=== PATIENT | female | born 1945 | race Caucasian/White ===

== ENCOUNTER 2017-02-20 11:46 | Inpatient (IN) | payer MEDICARE, OTHER ==
[2017-02-20] VITALS (7 sets, daily range): BP systolic 134–161; BP diastolic 53–79; PULSE 6–67; RESP 16–18; O2SAT 99–100
[~2017-02-20] VITALS: Ht 154.9 cm; Wt 66.0 kg
[~2017-02-20 11:46] MED LIST: ASCO-294 PO; ATEN25TA PO; BACL10TA PO; CYAN100T PO; CYCL1DRO OP; DALF10TA PO; ERGO500050 PO; ESOM40CA41 PO; FESO4TAB PO; GABA800T2 PO; INUL2TAB8 PO; LEVO75TA4 PO; MULT-1018 PO; NYST15CR TP; PARO20TA57 PO; PILO5TAB PO; PSYL660P17 PO; STEROID; TLT2T PO; TOPI-59 PO; TRAZ-115 PO; [UNRECOGNIZED DRUG - OTHER] PO
[2017-02-20] MEDS ORDERED: 0.9% Sodium Chloride 1,000 ML IV ONE (12:20)
[2017-02-20] MEDS ORDERED: Ondansetron 2 mg/mL 2 mL Inj IVPUSH PRN ×3 (12:20→15:15)
--- NOTE | 2017-02-20 12:36 | ED.REPORT ---
HPI-General Illness Date of Service Feb 20, 2017 ED Provider: Willy Foster MD Pema Hui is a 71 year old woman with a PMH of MS, Fibromyalgia, L breast cancer 11 years with mastectomy and lymph node dissection given "all clear" by Dr. Bonilla within the last month, and Hiatal hernia s/p Rosibel fundoplication with subsequent revision with partial gastrectomy in January who presents with a 4 week history of nausea and vomiting essentially unable to tolerate most PO intake including her meds and 20 pounds of weight loss in that interim. She has only been able to tolerate small portions of thin liquids like chicken soup, she continues to take her opiate analgesia and nighttime Trazadone, but otherwise has been off her meds for 4 weeks. Nursing Notes Stated Complaint: INTRACTIBLE VOMITING Chief Complaint: Female Abdominal Pain Nursing Notes Reviewed: Yes Allergies: Coded Allergies: Penicillins (Verified Allergy, Severe, rash, 02/20/17) adhesive tape (Verified Allergy, Severe, blisters will tape (paper ok), ) aspirin (Verified Allergy, Severe, GI INTOLERANCE, 02/20/17) ibuprofen (Verified Allergy, Severe, GI INTOLERANCE, 02/20/17) metoclopramide HCl (Verified Allergy, Severe, severe anxiety, 02/20/17) promethazine HCl (Verified Allergy, Severe, hospitalized for tightness in chest, 02/20/17) warfarin (Verified Allergy, Severe, Hives, 02/20/17) Scheduled ([empyra]) 10 MG PO BID Ascorbate Calcium (Vitamin C) 500 Mg Tablet 500 MG PO DAILY Atenolol (Atenolol) 25 Mg Tablet 25 MG PO DAILY Baclofen (Baclofen) 10 Mg Tablet 10 MG PO TID Cyanocobalamin (Vitamin B-12) (Vitamin B-12) 100 Mcg Tablet 100 MCG PO DAILY Cyclosporine (Restasis) 1 Each Droperette 1 EACH OP BID Dalfampridine (Ampyra) 10 Mg Tablet 10 MG PO BID Ergocalciferol (Vitamin D2) (Drisdol) 50,000 Unit Capsule 50,000 UNIT PO WEEKLY Esomeprazole Magnesium (Nexium) 40 Mg Capsule.dr 40 MG PO BID Fesoterodine ER (Toviaz) 4 Mg Tablet 4 MG PO DAILY Gabapentin (Gabapentin) 800 Mg Tablet 400 MG PO TID Inulin (Fiber Gummies) 2 Gram Tab.chew 2 GM PO DAILY Levothyroxine (Levothyroxine) 75 Mcg Tablet 75 MCG PO DAILY Multivitamin (Multi Vitamin Daily) 1 Each Tablet 1 EACH PO DAILY Nystatin/Triamcin (Nystatin-Triamcinolone Cream) 15 Gm Cream..g. 15 GM TP TID Paroxetine (Paxil) 20 Mg Tablet 10 MG PO DAILY Pilocarpine (Salagen) 5 Mg Tablet 5 MG PO BID Psyllium Husk (Metamucil) 3.4 Gram/5.4 Gram Powder 17 GM PO DAILY Tolterodine Tartrate (Detrol) 2 Mg Tablet 4 MG PO DAILY Topiramate (Topiramate) 25 Mg Tablet 25 MG PO BID Trazodone (Trazodone) 50 Mg Tablet 50 MG PO HS Miscellaneous Medications ([steroid inj]) General Time Seen by MD: 13:30 Chief Complaint Vomiting Hx Obtained From: Patient Sudden in Onset?: No Onset Occurred: More than a week ago... (4 weeks) Symptom Duration: Waxes and wanes Location: : Abdomen Quality: Aching Severity: Current: Mild Severity: Maximum: Moderate Recent Healthcare: Recent doctor visit Similar Sx Previous: No Past Medical History Past Medical History cataracts hypertension Multiple Sclerosis GERD Hiatal Hernia s/p repair depression Past Surgical History Shoulder repair hiatal hernia repair spinal surgery hysterectomy bilateral cataract surgery Smoking History Never Smoker Social History Alcohol Use: Denies alcohol use Drug Use: Denies drug use Other Social History: Ambulatory Status Independent Review of Systems Full Review of Systems Constitutional: Reports: Recent wt loss (20 lbs unintentional) GI: Reports: Anorexia, Nausea, Vomiting Complete sys rev & neg: except as marked. Physical Exam Gen: A/O x3 chronically ill appearing woman in mild acute distress secondary to nausea Neck: Supple, non tender, Full ROM HEENT: Mucous membranes dry, PERRL, EOMI, no scleral icterus CV: RRR, no murmurs rubs or gallops Resp: Lungs CTA BL, no wheezing rales or rhonchi Abdomen: soft, diffusely mildly tender to palpation, BS diminished 4Q, no masses or organomegaly Extr: No cyanosis clubbing or edema Neuro: CN 2-12 grossly intact, no focal neurologic deficit. Vital Signs Vital Signs Date Time Temp Pulse Resp B/P Pulse Ox O2 Delivery O2 Flow Rate FiO2 328/17 14:33 63 16 139/53 100 Room Air 02/20/17 12:02 36.7 67 16 134/79 100 Room Air Initial VS: Reviewed, Vital signs normal Interpretation & Diagnostics Lab Results Interpretation Result Diagram: 02/20/17 1316 02/20/17 1316 Test 02/20/17 13:16 White Blood Count 5.2th/mm3 (3.8-10.1) Red Blood Count 4.93mil/mm3 (3.90-5.20) Hemoglobin 14.7g/dL (12.0-15.6) Hematocrit 41.7% (35.0-46.0) Mean Corpuscular Volume 84.6fL (81-100) Mean Corpuscular Hemoglobin 29.8pg (27.0-35.0) Mean Corpuscular Hemoglobin Concent 35.3% (32.0-37.0) Red Cell Distribution Width 14.3% (12.3-15.4) Platelet Count 265bil/L (150-400) Neutrophils (%) (Auto) 49.2% (40-74) Lymphocytes (%) (Auto) 37.6% (14-46) Monocytes (%) (Auto) 7.0% (4-12) Eosinophils (%) (Auto) 5.8% (0-5) Basophils (%) (Auto) 0.4% (0-3) Hold Blue Top Tube Received (Received) Sodium Level 144mEq/L (134-144) Potassium Level 2.6mEq/L (3.5-5.2) Chloride Level 100mEq/L (97-108) Carbon Dioxide Level 27mmol/L (18-29) Blood Urea Nitrogen 8mg/dL (8-27) Creatinine 0.68mg/dL (0.57-1.00) Estimat Glomerular Filtration Rate 122mL/min (>59) Glucose Level 93mg/dL (60-99) Calcium Level 9.8mg/dL (8.5-10.1) Total Bilirubin 0.4mg/dL (0.0-1.2) Aspartate Amino Transf (AST/SGOT) 23U/L (0-50) Alanine Aminotransferase (ALT/SGPT) 14U/L (0-32) Alkaline Phosphatase 66U/L (25-165) Total Protein 6.7g/dL (6.4-8.4) Albumin 4.0g/dL (3.4-5.0) Lipase 36U/L (13-60) Lab Results Interpretation: Hypokalemia at 2.6 Re-Eval/Medical Decision Med Decision/Clinical Course This is a patient with intractable nausea and vomiting for the past 4 weeks with associated 20 pounds of unintentional weight loss. History of L breast cancer s/p lumpectomy. Lab evaluation reveals a Potassium of 2.6, KCl given for replacement. Given the patient is unable to tolerate PO intake, has marked electrolyte abnormalities with palpitations, and her unintentional weight loss we believe that she would benefit from admission for electrolyte replacement, cardiac monitoring, and GI evaluation for her vomiting. Counseled Regarding: Diagnosis, Lab results, Need for admission Discharge & Departure Shift Change Sign-Out Patient Care Transferred: Yes Discussed Complaint(s): Yes Laboratory Evaluation: Lab evaluation discussed Response to Therapy: Improved Primary Impression: Hypokalemia, gastrointestinal losses Additional Impression: Intractable vomiting with nausea Vomiting type: unspecified Qualified Code: R11.2 - Nausea with vomiting, unspecified Disposition: ADMITTED TO HOSPITAL Discharge Condition All VS Reviewed: Yes Condition: Stable Referrals: Suzanne Ortega (PCP) EDSupervising Provider for APC: Willy Foster MD Attending Statement I saw and evaluated patient with resident Dr Smallwood. I evaluated patient independently and agree with plan as above. In brief, 71-year-old female history of breast cancer and hiatal hernia presenting with nausea and vomiting for 4 weeks and weakness and 20 pound weight loss. Potassium is 2.6. She will be admitted to hospitalist service. copies to: Suzanne Ortega David E DO Feb 20, 2017 12:35 Willy Foster MD Feb 20, 2017 15:18
[2017-02-20 13:34] LABS: BASOPHILS % (AUTO) 0.4 % (0-3); EOSINOPHILS % (AUTO) 5.8 % (0-5); Mean Corpuscular Hemoglobin 29.8 pg (27.0-35.0); Mean Corpuscular Volume 84.6 fL (81-100); NEUTROPHILS % (AUTO) 49.2 % (40-74); Platelet Count 265 bil/L (150-400)
[2017-02-20] MEDS ORDERED: Potassium Chloride Inj 30 MEQ in Dextrose 5% 500 ML IV ONE (14:20)
[2017-02-20] MEDS ORDERED: Polyethylene Glycol (PEG) 17 Gm Powder PO PRN (15:15)
[2017-02-20] MEDS ORDERED: Alum-Mag Hydrox-Simeth 30 mL Suspension PO PRN ×2 (15:15)
--- NOTE | 2017-02-20 16:42 | PCM.HPMED ---
Subjective Date of Service Feb 20, 2017 Primary Provider: Admitting Physician: Bud Kearns MD Primary Care Physician: Suzanne Ortega Attending Physician: Bud Kearns MD Admit Status: From the Emergency Department, 23-Hour Observation, Remote Telemetry Chief Complaint: Nausea, vomiting and hypokalemia History of Present Illness: This patient saw her PCP for 4 weeks of nausea and vomiting this AM. She also has chronic diarrhea. She has a H/O surgery for hiatal hernia with a second surgery for a related problem and a partial gastrectomy. She has had epigastric abdomen pain and some dyspepsia. No hematemesis. No abdomen distension. No fevers or chills. She also has chronic diarrhea and this is unchanged. She has no blood or mucous per rectum. She has lost 20 pounds over the month and is weaker. Her K is found to be low at 2.8. She is concerned that her nausea relates to her topiramate. She denies diarrhea or blood per rectum. She denies fevers, or dyspepsia. She has ongoing fatigue and anorexia. No skin rash. No jaundice. Review of Systems: All else reviewed and negative except as noted in H and P. Allergies Coded Allergies: Penicillins (Verified Allergy, Severe, rash, 02/20/17) adhesive tape (Verified Allergy, Severe, blisters will tape (paper ok), ) aspirin (Verified Allergy, Severe, GI INTOLERANCE, 02/20/17) ibuprofen (Verified Allergy, Severe, GI INTOLERANCE, 02/20/17) metoclopramide HCl (Verified Allergy, Severe, severe anxiety, 02/20/17) promethazine HCl (Verified Allergy, Severe, hospitalized for tightness in chest, 02/20/17) warfarin (Verified Allergy, Severe, Hives, 02/20/17) Home Medications Scheduled ([empyra]) 10 MG PO BID Ascorbate Calcium (Vitamin C) 500 Mg Tablet 500 MG PO DAILY Atenolol (Atenolol) 25 Mg Tablet 25 MG PO DAILY Baclofen (Baclofen) 10 Mg Tablet 10 MG PO TID Cyanocobalamin (Vitamin B-12) (Vitamin B-12) 100 Mcg Tablet 100 MCG PO DAILY Cyclosporine (Restasis) 1 Each Droperette 1 EACH OP BID Dalfampridine (Ampyra) 10 Mg Tablet 10 MG PO BID Ergocalciferol (Vitamin D2) (Drisdol) 50,000 Unit Capsule 50,000 UNIT PO WEEKLY Esomeprazole Magnesium (Nexium) 40 Mg Capsule.dr 40 MG PO BID Fesoterodine ER (Toviaz) 4 Mg Tablet 4 MG PO DAILY Gabapentin (Gabapentin) 800 Mg Tablet 400 MG PO TID Inulin (Fiber Gummies) 2 Gram Tab.chew 2 GM PO DAILY Levothyroxine (Levothyroxine) 75 Mcg Tablet 75 MCG PO DAILY Multivitamin (Multi Vitamin Daily) 1 Each Tablet 1 EACH PO DAILY Nystatin/Triamcin (Nystatin-Triamcinolone Cream) 15 Gm Cream..g. 15 GM TP TID Paroxetine (Paxil) 20 Mg Tablet 10 MG PO DAILY Pilocarpine (Salagen) 5 Mg Tablet 5 MG PO BID Psyllium Husk (Metamucil) 3.4 Gram/5.4 Gram Powder 17 GM PO DAILY Tolterodine Tartrate (Detrol) 2 Mg Tablet 4 MG PO DAILY Topiramate (Topiramate) 25 Mg Tablet 25 MG PO BID Trazodone (Trazodone) 50 Mg Tablet 50 MG PO HS PMH 1. MS 2. Fibromyalgia 3. Chronic pain syndrome 4. Remote left breast CA, lumpectomy + Rad + Ctx. 5. Hiatal hernia Surgical History 1. Raymon fund 2. Partial gastrectomy 3. LEXX 4. BSO Family History Sister with MS Social History Hx Alcohol Use: Yes Hx Substance Use: No Hx Tobacco Use: No Smoking Status: Never Smoker Living Arrangement: with Family Exam Vital Signs Vital Sign - Last Date Time Temp Pulse Resp B/P Pulse Ox O2 Delivery O2 Flow Rate FiO2 02/20/17 15:48 36.7 63 16 139/53 100 Room Air Exam Alert and oriented by 3. No distress, fluent speech. Normal skull Normal nose and ears. Anicteric sclera, symmetric pupils. Normal mouth, no droop. Neck supple, normal thyroid, no adenopathy. Lungs clear and normal effort Heart regular without murmur. Abdomen soft, with epigastric tenderness, no mass or rebound. No rash, ecchymosis Normal joints Normal motor strength. Lab and Diagnostics Result Diagram: 02/20/17 1316 02/20/17 1316 Assessment & Plan 1. Nausea and vomiting, POA. Treat symtoms and CT abdomen/pelvis to R/O SBO. 2. Volume depletion, POA. IVF 3. Hypokalemia, POA. Replete. 4. Chronic diarrhea, POA. Follow 5. MS, POA. No acute treatment plan. 6. Possible adverse medication effect (topiramate), POA. Ful code. Obs status with one night stay anticipated. Pain Evaluation: Adequate Pain Control Resuscitation Status: CPR: Attempt Resuscitation Time spent 40 min Bud Kearns MD Feb 20, 2017 16:42
[2017-02-20] MEDS: 0.9% Sodium Chloride 1,000 ML IV SCH (17:38)
[2017-02-20] MEDS ORDERED: GABA-504 PO (18:29)
[2017-02-20] MEDS ORDERED: ERGO2000 PO (18:29)
[2017-02-20] MEDS ORDERED: FLUT16SP NOSTRIL (18:35)
[2017-02-20] MEDS ORDERED: METO25TA3 PO (18:35)
[2017-02-20] MEDS ORDERED: OXYC1TAB24 PO (18:35)
[2017-02-20] MEDS ORDERED: DICL100G8 TOPICAL (18:35)
--- NOTE | 2017-02-20 19:22 | NUR ---
Admission Admit to room 3003 from ER via [facility]. KRider infusing, IVF initiated. Maintaining RA. Oriented to room and call light. Med Rec and limited admission assessments completed d/t time of arrival to unit. Hot packs admin for neck pain and zofran admin prior to oral contrast for ABD CT. Using SBA to BSC and comfortable with plan of care at this time.
--- NOTE | 2017-02-20 20:08 | DRSVH ---
PROCEDURE: CT ABDOMEN AND PELVIS WITH CONTRAST ([id number]) INDICATIONS: Abdominal pain TECHNIQUE: After the administration of oral and intravenous contrast, 5 mm thick sections acquired from the diap hragms to the symphysis. 5 mm thick coronal and sagittal reformats were performed. For radiation do se reduction, the following was used: automated exposure control, adjustment of mA and/or kV accordi ng to patient size. COMPARISON: None. FINDINGS: Image quality: Excellent. ABDOMEN: Lung bases: There is mild atelectasis in the lung bases. There is a spiral hernia with postsurgical changes at the gastroesophageal junction. Heart size is normal. Solid organs: There is hypoattenuation of the liver consistent with fatty infiltration. The spleen i s normal in size. Gallbladder appears within normal limits without calcified gallstones. Biliary sy stem is non-dilated. Pancreas enhances normally. No adrenal nodules. Kidneys demonstrate no hydron ephrosis. Peritoneum and bowel: Stomach and small bowel loops are normal in caliber and wall thickness. There is colonic diverticulosis without acute diverticulitis. There is mild segmental wall thickening in the sigmoid colon suggesting a mild nonspecific colitis. No free fluid or air. Nodes and vessels: No retroperitoneal or mesenteric adenopathy. Aorta and inferior vena cava are no rmal in caliber. Miscellaneous: No ventral hernias. PELVIS: Genitourinary: Bladder wall thickness is normal. Miscellaneous: No inguinal hernias or adenopathy. Bones: No suspicious bony lesions. No vertebral body compression fractures. IMPRESSION: 1. Post surgical changes at the gastroesophageal junction suggestive of prior fundoplication with a small hiatal hernia demonstrated. 2. Mild segmental wall thickening of the sigmoid colon compatible with a mild nonspecific infectious or inflammatory colitis. Dictated by: Rikki Anglin M.D. on 02/20/2017 at 20:03 Approved by: Rikki Anglin M.D. on 02/20/2017 at 20:06
[2017-02-20] MEDS ORDERED: Potassium Chloride Inj 20 MEQ in Dextrose 5% 250 ML IV ONE (22:05)
[2017-02-20 22:55] LABS: APPEARANCE,URINE CLEAR (CLEAR,HAZY); COLOR,URINE STRAW (YELLOW); OCCULT BLOOD,URINE NEGATIVE (NEGATIVE); PH,URINE 5.5 (5.0-8.0); UROBILINOGEN,URINE NORMAL (NORMAL)
[2017-02-21] VITALS (7 sets, daily range): BP systolic 115–152; BP diastolic 61–76; PULSE 64–76; RESP 16–18; O2SAT 94–99
--- NOTE | 2017-02-21 00:09 | NUR ---
Critical measure at 8232: Low k 2.7. Dr. Rose paged at 0009, k sapna has been ordered and will be hang.
[2017-02-21] MEDS: oxyCODONE-Acetamin 5-325 mg Tablet PO PRN (04:11)
[2017-02-21] MEDS: 0.9% Sodium Chloride 1,000 ML IV SCH ×3 (05:23→21:14)
[2017-02-21 06:59] LABS: BASOPHILS % (AUTO) 0.6 % (0-3); EOSINOPHILS % (AUTO) 15.3 % (0-5); MONOCYTES % (AUTO) 7.7 % (4-12); Mean Corpuscular Hemoglobin 29.9 pg (27.0-35.0); Mean Corpuscular Volume 86.4 fL (81-100); NEUTROPHILS % (AUTO) 38.5 % (40-74); Platelet Count 205 bil/L (150-400)
--- NOTE | 2017-02-21 07:17 | NUR ---
Pain Pt c/o neck pain 5-06/04, Morphine IV given at pm, Percocet given this am, pain improved and pt sleeping comfortably. VSS, afebrile.
[2017-02-21] MEDS: PARoxetine 20 mg Tablet PO SCH (08:30)
[2017-02-21] MEDS ORDERED: Potassium Phos (mEq) Inj 20 MEQ in Dextrose 5% 250 ML IV ONE (09:00)
[2017-02-21] MEDS ORDERED: Potassium Chloride 20 mEq SR Tablet PO ONE (09:00)
[2017-02-21] MEDS: MeTOProlol XL 25 mg ER24 Tablet PO SCH (09:56)
[2017-02-21] MEDS ORDERED: KCl 40 mEq/D5W 500 mL 40 MEQ in IV Premix 1 EACH IV ONE (10:15)
[2017-02-21] MEDS ORDERED: Potassium Chloride Inj 20 MEQ in Dextrose 5% 250 ML IV ONE (11:45)
--- NOTE | 2017-02-21 13:54 | NUR ---
Social Work: Initial Assessment / Readiness for d/c Data: Pt is a 71 y/o female admitted for hypokalemia due to intractable vomiting. Pt's PCP is Dr Ortega, pt's insurance is Medicare with [employer] supp. EMR reviewed. Readmit score is 3. NEW GRAD RN met with pt at bedside, role explained. Pt states that she lives in [place] with her in a single story home where she uses a cane regularly and a walker when out. Pt states she drives, has hx of HH and SNF at [facility]. She states she has no LTC or VA benefits and is not a caregiver. Pt reports no AD/DPOA, declined info. NEW GRAD RN will continue to follow for possible HH need. Assessment: Pt who is independent at baseline. Plan: Pt will d/c home via POV when medically stable, NEW GRAD RN will continue to follow for possible HH need. JULIUS Garcia Addendum: 02/21/17 at 1359 by LEONARD HOOVER Amended: Links added.
--- NOTE | 2017-02-21 17:19 | PCM.PNMED ---
Subjective Date of Service Feb 21, 2017 Subjective Uneventful overnight. K up to 3.1 this morning. This report she is doing mildly better this morning. She is less nauseous, but reports she has not trialed any PO intake. She denies any fever, chest pain, or shortness of breath. She does endorse moderate abdominal pain, worse in the epigastric and left lower quadrant. Exam Vital Signs Vital Sign - Last Date Time Temp Pulse Resp B/P Pulse Ox O2 Delivery O2 Flow Rate FiO2 02/21/17 05:29 36.8 64 18 115/61 94 Room Air Intake and Output 02/20/17 02/20/17 02/21/17 Cumulative From/Thru 15:00 23:00 07:00 02/20/17 12:02 - 02/21/17 05:24 Intake Total 1000 ml 125 ml 1798 ml 2923 ml Output Total 0 ml 0 ml Balance 1000 ml 125 ml 1798 ml 2923 ml Intake Oral 125 ml 125 ml IV Total 1000 ml 1798 ml 2798 ml Output Urine Total 0 ml 0 ml # Bowel Movements 0 0 Exam General: Well-developed female who appears in no acute distress HEENT: Atraumatic, PERRLA, EOMI, oropharynx moist and pink Neck: Soft, nontender CV: RRR with soft systolic murmur noted, peripheral pulses intact and equal Respiratory: CTAB, normal respiratory effort Abdomen: Soft, nondistended, tender to palpation in the epigastrium and left lower quadrant, no guarding or rebound, hyperactive bowel sounds noted, no rashes MSK: Muscle strength grossly intact and equal Neuro: Alert and oriented 3, no focal weakness Skin: Warm, dry, intact Psychiatric: Appropriate mood and affect, linear thought process IVs and Medications Medications Reviewed: Medications were reviewed in detail Lab and Diagnostics Result Diagram: 02/21/17 0600 02/21/17 0600 X-Rays, CTs and MRIs CT abdpelvis IMPRESSION: 1. Post surgical changes at the gastroesophageal junction suggestive of prior fundoplication with a small hiatal hernia demonstrated. 2. Mild segmental wall thickening of the sigmoid colon compatible with a mild nonspecific infectious or inflammatory colitis. Assessment & Plan 71 year old woman with a PMH of MS, Fibromyalgia, L breast cancer 11 years s/p mastectomy and lymph node dissection, and Hiatal hernia s/p Rosibel fundoplication with subsequent revision with partial gastrectomy in January who presents with a 4 week history of nausea, vomiting, anorexia, and loose bowels. 1. Intractable Nausea/Vomiting/Diarrhea, POA. Likely associated with patient's new sigmoid thickening is noted on CT of her abdomen and pelvis. Her hiatal hernia and extensive abdominal surgery history probably is a contributing factor We will continue to advance diet as tolerated Gastroenterology consultation placed Zofran prn nausea #Likely sigmoid colitis, POA As demonstrated on CT for abdomen and pelvis. Patient is afebrile without an elevated white count and her symptoms have been fairly chronic so this is unlikely an infectious process Further management as above #. Volume depletion, POA We will continue IV fluids at 100 mls/hr while having poor PO intake #. Hypokalemia, POA. - Resolved Patient was hypokalemic with potassium of 2.6 on admission. Perhaps due to recent prolonged episode of diarrhea This was replenished with IV potassium and improve to level of 3.6 We will continue to monitor and replenish as needed #. History of multiple sclerosis, POA. Stable #. Polypharmacy, POA. Patient is on an extensive list of medications that could be contributing to her symptoms We will recommend outpatient follow-up for appropriate titration Disposition: Likely discharge in 1-2 days if medically stable and cleared by GI Pain Evaluation: Adequate Pain Control VTE Mechanical Devices: Intermittant Pneumatic CD Resuscitation Status: CPR: Attempt Resuscitation Attending Statement The patient was seen and examined independently on 02/21/2017 and case discussed with Dr. Rodgers , I agree with the history, exam and plan as outlined in the note above. Janes Rodgers DO Feb 21, 2017 08:14 Saul Monroy MD Feb 22, 2017 07:44
--- NOTE | 2017-02-21 19:39 | NUR ---
BM: Patient had diarrhea x2 today. The second episode stool was sent to the lab per for PCR test.
--- NOTE | 2017-02-21 22:57 | CONS ---
[address] [address] CONSULTATION REPORT PATIENT: HAROLDO RICHARDSON : 1945 MR#: [id number] ADMIT: 02/20/2017 JOB ID: [id number] DATE OF SERVICE: 02/21/2017 REQUESTING PROVIDER: Lindsey Rodgers MD REASON FOR CONSULTATION: Nausea, vomiting, diarrhea and abnormal CT imaging. HISTORY OF PRESENT ILLNESS: This is a 71-year-old female known to me from the outpatient setting. She has a history of constipation, opiate dependency, refractory reflux requiring a redo of her Rosibel fundoplication. She has had recurrence of hiatal hernia in spite of the surgical intervention. The patient recently returned from [place] and within a couple of weeks of that trip started to experience symptoms of nausea, vomiting, frequent loose bowel movements. No report of any bleeding plus a 20 pound weight loss over this time frame. ALLERGIES: 1. PENICILLIN. 2. ADHESIVE TAPE. 3. ASPIRIN. 4. IBUPROFEN. 5. METOCLOPRAMIDE. 6. PROMETHAZINE. 7. WARFARIN. MEDICATIONS: The patient denies any new drugs apart from her topiramate. She was also takin. Baclofen. 2. Pilocarpine. 3. Atenolol. 4. Metoprolol. 5. Diclofenac gel. 6. Gabapentin. 7. Paxil (topiramate was apparently stopped recently). 8. Trazodone. 9. Percocet. 10. Restasis eyedrops. 11. Fluticasone nasal spray. 12. Nexium. 13. Fish gummies. 14. Levothyroxine. 15. Nystatin. 16. Triamcinolone cream. 17. Detrol. 18. Vitamin C. 19. Vitamin B12. 20. Vitamin D 2. 21. Multivitamin. 22. Ampyra. 23. She additionally was written for Metamucil and Toviaz. PAST MEDICAL HISTORY: Fibromyalgia, chronic pain, chronic opiate consumption, multiple sclerosis, breast cancer, reflux, hiatal hernia, twisty colon with failed colonoscopy, hypothyroidism. PAST SURGICAL HISTORY: Redo of Rosibel fundoplication, total abdominal hysterectomy, bilateral salpingo-oophorectomy. FAMILY HISTORY: Multiple sclerosis has been diagnosed in her sister. SOCIAL HISTORY: No tobacco use. Patient does use alcohol. REVIEW OF SYSTEMS: No fevers or chills. Weight loss as above. She had some fairly diffuse numbness and tingling that she believes was related to the topiramate and stopped this with resolution of some of these symptoms. She is not having any significant reflux or dysphagia. There was a report of some mild upper abdominal discomfort at times. She was hypokalemic as a consequence of all of her nausea, vomiting and diarrhea. She denies any antibiotic exposure in recent memory. A CAT scan here in the hospital revealed some mild segmental wall thickening described in the sigmoid of uncertain etiology. The review is otherwise as per above. She is not experiencing any cardiopulmonary symptoms. No stroke-like symptoms. PHYSICAL EXAMINATION: The patient was lying in the semirecumbent position. Blood pressure this afternoon 140/66, pulse 68, breathing 18, temperature 36.9, 97% on room air. The patient was in no distress, conversational, alert, oriented, appropriate. Lungs clear bilaterally. Heart regular. No significant peripheral pitting edema. Abdomen was soft, and there was some mild upper abdominal discomfort and even some diffuse lower discomfort without guarding. Bowel sounds were active. No significant distention appreciated. LABORATORY: Potassium was 2.6 on admission and has been normal at 3.6. Sodium 140, potassium as above, chloride 104, bicarb 21, BUN 3, creatinine 0.63, glucose 117, calcium 8.4, magnesium 1.8. Liver tests normal. Albumin 3.1. Updated TSH was 2.90, procalcitonin level was normal. There was evidence of white cells in the urine but no growth so far. There were some epithelial cells suggesting perhaps a contaminated specimen. White count is normal, platelets 205, hemoglobin 12.3, white count 5.3. CT scan: I reviewed the images and do not see significant stool burden. There is some very mild subtle possible thickening versus imaging artifact from lack of distention in the sigmoid. ASSESSMENT AND PLAN: This is a 71-year-old female with four weeks of nausea, vomiting, diarrhea, weight loss of uncertain etiology. She has a history of chronic daily opiate use and constipation. Her diarrhea symptoms are a little unusual, and I would definitely consider obstipation high in the differential. The only problem with that is that I really do not see that very easily on the CT scan. Procalcitonin level is normal and there is no evidence of a left shift nor a leukocytosis, but we would still need to exclude an infectious GI agent. I have thus requested stool PCR for enteric pathogens. If this is positive, we can proceed accordingly. If negative, I would be inclined to pursue a couple of Fleets enemas tomorrow afternoon and attempt visualization of the sigmoid colon to correlate with what is being described on CT. Beyond that, if there is no answer with a flexible sigmoidoscopy, further workup with HIDA scan imaging should be considered.
[2017-02-22] VITALS (10 sets, daily range): BP systolic 125–183; BP diastolic 66–83; PULSE 56–78; RESP 14–20; O2SAT 92–99
--- NOTE | 2017-02-22 06:10 | NUR ---
BM/Dizziness Pt incontinent of liquid stool X1 this shift, bedding and brief changed. When pt transferring from bed to chair, pt stating feeling "dizzy." Pt unsteady on feet, pt back to bed from chair with 2 person assist. Instructed pt not to get up by herself, call light within reach, frequent rounding, bed alarm on for pt safety.
[2017-02-22] MEDS: 0.9% Sodium Chloride 1,000 ML IV SCH ×2 (06:45→17:42)
[2017-02-22 07:52] LABS: BASOPHILS % (AUTO) 1.2 % (0-3); EOSINOPHILS % (AUTO) 20.2 % (0-5); MONOCYTES % (AUTO) 7.5 % (4-12); Mean Corpuscular Hemoglobin 29.9 pg (27.0-35.0); Mean Corpuscular Volume 84.1 fL (81-100); NEUTROPHILS % (AUTO) 43.1 % (40-74)
[2017-02-22] MEDS: MeTOProlol XL 25 mg ER24 Tablet PO SCH (08:01)
[2017-02-22] MEDS: PARoxetine 20 mg Tablet PO SCH (08:01)
[2017-02-22] MEDS: oxyCODONE-Acetamin 5-325 mg Tablet PO PRN ×2 (08:15→21:03)
[2017-02-22] MEDS ORDERED: Sodium Biphos-Phos 133 mL Enema RECTAL ONE (09:15)
[2017-02-22] MEDS: Sodium Biphos-Phos 133 mL Enema RECTAL PRN ×3 (12:05→14:21)
--- NOTE | 2017-02-22 14:11 | NUR ---
NUTRITION ASSESSMENT: ASSESS: 71 YO female admitted for hypokalemia due to persistent nausea/vomiting x 4 weeks and chronic diarrhea. Pt reports 20 lb wt loss x last 4 weeks, but per EMR review, wt appears stable since March 2016. Pt was on a full liquid diet x 2 days with po intake of 25-50% of meals, but diet has been changed to clear liquids today. As pt with partial gastrectomy, nausea, vomiting and diarrhea could be due to dumping syndrome. RD will continue to monitor. PMHx: MS, Fibromyalgia, chronic pain syndrome, remote L breast cancer s/p lumpectomy, chemo and radiation, hiatal hernia s/p repair with 2nd surgery for partial gastrectomy. LABS: Reviewed. Glu 127, Alb 3.1, Cr .55. MEDS: Reviewed. GI: Diarrhea (chronic) x 1 (02/22). CURRENT WT: 66 kg. Wt 03/2016: 66 kg. UBW from 5863-8352: 79 kg. Significant wt loss prior to 2012, but current wt appears stable x 10 months. DIET: Clear liquids. No po intake reported today. EST. NEEDS: 7870-9296 kcals (25-30 kcals/kg BW), 80-100 g protein (1.2-1.5 g/kg BW) NUTRITION DIAGNOSIS: 1.) Inadequate oral intake related to decreased ability to consume sufficient energy as evidenced by current clear liquid diet status x 1 day. NUTRITION INTERVENTION: 1.) Will add ensure clear and Gelatein 20 to all trays to encourage increased po intake while pt on clear liquid diet. MONITOR / EVAL: Diet advancement / tolerance, po intake, labs, nutritional status. Follow per moderate nutritional risk guidelines.
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
[2017-02-22] MEDS ORDERED: Lactated Ringer's 1,000 ML IV ONE (16:30)
--- NOTE | 2017-02-22 16:54 | PCM.ANEP1 ---
Post Anesthesia Phase 1 PACU Phase 1 Assessment Vital Signs see anesthesia report Vital Signs Date Time Temp Pulse Resp B/P Pulse Ox O2 Delivery O2 Flow Rate FiO2 02/22/17 15:29 36.6 60 18 147/77 96 Room Air 02/22/17 10:59 36.3 76 18 151/73 95 Room Air Anesthetic Administered: MAC Level of Alertness: Sleepy, easy to arouse HERRERA's with Equal Strength: No Pain: No Nausea or Vomiting: No Oxygen Delivery: Room Air Lungs: Normal Air Movement Rayo Marshall MD Feb 22, 2017 16:54
--- NOTE | 2017-02-22 16:54 | PCM.ANEP2 ---
Post Anesthesia Evaluation ASA/CMS Post Anesthesia VS in Patient's Normal Range?: Yes Resp Stable; Airway Patent?: Yes CV Function & Hydration Stable: Yes Mental Status Recovered?: Yes Pain control Satisfactory?: Yes N/V Control Satisfactory?: Yes Rayo Marshall MD Feb 22, 2017 16:54
--- NOTE | 2017-02-22 16:55 | PCM.PNMED ---
Subjective Date of Service Feb 22, 2017 Subjective [place] Brown 71 year old woman with a PMH of MS, Fibromyalgia, L breast cancer 11 years s/p mastectomy and lymph node dissection, and Hiatal hernia s/p Rosibel fundoplication with subsequent revision with partial gastrectomy in January who presents with a 4 week history of nausea, vomiting, anorexia, and loose bowels. Hospital day #3 Overnight: No acute events. Today: The patient was sleeping in her room. She tolerate her Fleets enemas well. Her stools are clear. Exam Vital Signs Vital Sign - Last Date Time Temp Pulse Resp B/P Pulse Ox O2 Delivery O2 Flow Rate FiO2 02/22/17 10:59 36.3 76 18 151/73 95 Room Air Intake and Output 02/21/17 02/21/17 02/22/17 Cumulative From/Thru 15:00 23:00 07:00 02/20/17 12:02 - 02/22/17 06:43 Intake Total 836 ml 2663 ml 1478 ml 7900 ml Output Total 1100 ml 1450 ml 2150 ml 4700 ml Balance -264 ml 1213 ml -672 ml 3200 ml Intake Oral 836 ml 1600 ml 400 ml 2961 ml IV Total 1063 ml 1078 ml 4939 ml Output Urine Total 1100 ml 1200 ml 1300 ml 3600 ml Stool Total 250 ml 100 ml 350 ml Urine/Stool Mix 750 ml 750 ml # Bowel Movements 0 1 1 2 Exam General: Well-developed female who appears in no acute distress, resting comfortably. HEENT: Atraumatic, PERRLA, EOMI, oropharynx moist and pink Neck: Soft, nontender CV: RRR with soft systolic murmur noted, peripheral pulses intact and equal Respiratory: CTAB, normal respiratory effort Abdomen: Soft, nondistended, tender to palpation in the epigastrium and left lower quadrant, no guarding or rebound, hyperactive bowel sounds noted, no rashes MSK: Muscle strength grossly intact and equal Neuro: Alert and oriented 3, no focal weakness Skin: Warm, dry, intact Psychiatric: Appropriate mood and affect, linear thought process IVs and Medications Medications Reviewed: Medications were reviewed in detail Lab and Diagnostics Result Diagram: 02/22/17 0735 02/22/17 0940 X-Rays, CTs and MRIs CT ABDOMEN AND PELVIS WITH CONTRAST IMPRESSION: 1. Post surgical changes at the gastroesophageal junction suggestive of prior fundoplication with a small hiatal hernia demonstrated. 2. Mild segmental wall thickening of the sigmoid colon compatible with a mild nonspecific infectious or inflammatory colitis. Dictated by: Rikki Anglin M.D. on 02/20/2017 at 20:03 Assessment & Plan Pema Hui 71 year old woman with a PMH of MS, Fibromyalgia, L breast cancer 11 years s/p mastectomy and lymph node dissection, and Hiatal hernia s/p Rosibel fundoplication with subsequent revision with partial gastrectomy in January who presents with a 4 week history of nausea, vomiting, anorexia, and loose bowels. Hospital day #3 1. Intractable Nausea/Vomiting/Diarrhea, POA. -Likely associated with patient's new sigmoid thickening is noted on CT of her abdomen and pelvis. Her hiatal hernia and extensive abdominal surgery history probably is a contributing factor -We will continue to advance diet as tolerated -Gastroenterology consultation placed -Dr Cantu has high suspicion that obstipation is the main cause of her symptoms -Patient to undergo flex sigmoidoscopy today, if normal, then HIDA scan tomorrow -Zofran PRN nausea 2. Possible sigmoid colitis, POA -As demonstrated on CT for abdomen and pelvis. -Patient is afebrile without an elevated white count and her symptoms have been fairly chronic so this is unlikely an infectious process -Further management as above 3. Volume depletion, POA -We will continue IV fluids at 100 mls/hr while having poor PO intake 4. Hypokalemia, POA. - Resolved -Patient was hypokalemic with potassium of 2.6 on admission. Perhaps due to recent prolonged episode of diarrhea -This was replenished with IV potassium and improve to level of 3.6 -We will continue to monitor and replenish as needed 5. History of multiple sclerosis, POA. -Stable 6. Polypharmacy, POA. -Patient is on an extensive list of medications that could be contributing to her symptoms -We will recommend outpatient follow-up for appropriate titration Disposition: Likely discharge in 1-2 days if medically stable and cleared by GI VTE Mechanical Devices: Intermittant Pneumatic CD Resuscitation Status: CPR: Attempt Resuscitation Attending Statement The patient was seen and examined independently on 02/22/2017 and case discussed with Dr. Miramontes , I agree with the history, exam and plan as outlined in the note above. Nia Miramontes 30, 2017 11:15 Saul Monroy MD Feb 22, 2017 19:45
--- NOTE | 2017-02-22 17:21 | ENDO ---
[address] [address] ENDOSCOPY PROCEDURE PATIENT: HAROLDO RICHARDSON : 1945 MR#: [id number] ADMIT: 02/20/2017 JOB ID: [id number] DATE: 02/20/2017 PRIMARY PROVIDER: Suzanne Ortega PA-C PROCEDURE: Flexible sigmoidoscopy with extension to colonoscopy with hot snare polypectomy and random biopsies. INDICATIONS: A 71-year-old female with weight loss, diarrhea, nausea, vomiting, and abnormal CT concerning for thickening in the sigmoid. EQUIPMENT: PCF-H180AL. SEDATION: Monitored anesthesia as provided by Dr. Rayo Marshall. COMPLICATIONS: None identified. BOWEL PREP: Adequate. There was a moderate amount of retained stool in the mid and proximal colon as to be expected following only two Fleet enemas, but she had a remarkably decent bowel prep considering her presentation and history of constipation, etc. EQUIPMENT: PCF-H180AL. DESCRIPTION OF PROCEDURE: after the risks and benefits were explained, written and verbal informed consent was obtained. The patient was brought into the endoscopy suite and placed into the left lateral decubitus position. Sedation was achieved as above. A digital rectal examination accomplished. Mild internal hemorrhoids. No other pathology. The scope was introduced into the rectum and advanced under direct visualization to the ascending colon. Because of the retained stool debris adherent on the mcgarry, we did not press on all the way into cecum. There was a small perhaps 5-6 mm polyp removed in the ascending colon with hot snare polypectomy. We irrigated the mcgarry and got a decent exam all the way back and did not see any signs of colitis. We especially had a great look through the sigmoid which was quite tortuous and associated with numerous diverticula. That said, there were no findings of colitis, no mass lesions appreciated in this location. We took some random colon biopsies somewhere in the transverse to exclude the presence of microscopic colitis. Multiple direct views were made ultimately to the dentate line. The colon was decompressed. The scope removed from the patient who tolerated the procedure well. FINDINGS: As above. ENDOSCOPIC DIAGNOSES: 1. Colon polyp. 2. Diverticulosis. 3. Twisty sigmoid. RECOMMENDATIONS: 1. Await histopathology. 2. Continue supportive care for now. 3. Repeat full colonoscopy in the next few months with anesthesia.
[2017-02-23 01:43] VITALS: BP 148/64; PULSE 68; RESP 20; O2SAT 98
[2017-02-23] MEDS: 0.9% Sodium Chloride 1,000 ML IV SCH (03:54)
[2017-02-23 05:01] VITALS: BP 145/74; PULSE 72; RESP 16; O2SAT 97
[2017-02-23 05:12] VITALS: PULSE 61
[2017-02-23 06:52] LABS: BASOPHILS % (AUTO) 0.8 % (0-3); EOSINOPHILS % (AUTO) 17.7 % (0-5); MONOCYTES % (AUTO) 6.6 % (4-12); Mean Corpuscular Hemoglobin 29.4 pg (27.0-35.0); Mean Corpuscular Volume 84.4 fL (81-100); NEUTROPHILS % (AUTO) 38.3 % (40-74); Platelet Count 261 bil/L (150-400)
[2017-02-23 08:00] VITALS: PULSE 78
[2017-02-23] MEDS: MeTOProlol XL 25 mg ER24 Tablet PO SCH (08:20)
[2017-02-23] MEDS: PARoxetine 20 mg Tablet PO SCH (08:20)
[2017-02-23] MEDS ORDERED: TLT2T PO (08:27)
[2017-02-23] MEDS: oxyCODONE-Acetamin 5-325 mg Tablet PO PRN (08:35)
--- NOTE | 2017-02-23 09:27 | PCM.PNMED ---
Subjective Date of Service Feb 23, 2017 Subjective GASTROENTEROLOGY PROGRESS NOTE Ms. Hui was resting comfortably upright in bed this morning. States improved po tolerance. Denies dysphagia, nausea, vomiting. States she feels improved overall. Reports that diarrhea, although still present, is becoming more formed. States continued concern over medications, encouraged her to discuss with primary team and her PCP. Denies fever/chills. Exam Vital Signs Vital Sign - Last Date Time Temp Pulse Resp B/P Pulse Ox O2 Delivery O2 Flow Rate FiO2 02/23/17 08:00 78 02/23/17 05:01 36.6 16 145/74 97 Room Air Intake and Output 02/22/17 02/22/17 02/23/17 Cumulative From/Thru 15:00 23:00 07:00 02/20/17 12:02 - 02/23/17 06:46 Intake Total 3141 ml 1546 ml 55559 ml Output Total 2400 ml 3050 ml 26404 ml Balance 741 ml -1504 ml 2437 ml Intake Oral 2050 ml 237 ml 5248 ml IV Total 1091 ml 1309 ml 7339 ml Output Urine Total 2400 ml 3050 ml 9050 ml Stool Total 350 ml Urine/Stool Mix 750 ml # Voids 1 1 # Bowel Movements 4 0 6 Exam General: AAOx3; pleasant, coperative; no acute distress HEENT: Mucus membranes moist, EOMI, sclera anicteric CV: RRR; systolic murmur noted Respiratory: Adequate air flow all salas; no coarse sounds appreciated Abdomen: Soft, mild tenderness bilateral lower quadrants; no distention Extremities: No edema noted MSK: 4/4 strength all extremities; able to ambulate well without assistance Neuro: CNII-XII grossly intact; speech without slur; facial expressions appropriate and symmetric Psych: Appropriate mood, affect, and responses to questioning Lab and Diagnostics Result Diagram: 02/23/17 0635 02/23/17 0635 X-Rays, CTs and MRIs CT ABDOMEN AND PELVIS WITH CONTRAST IMPRESSION: 1. Post surgical changes at the gastroesophageal junction suggestive of prior fundoplication with a small hiatal hernia demonstrated. 2. Mild segmental wall thickening of the sigmoid colon compatible with a mild nonspecific infectious or inflammatory colitis. Dictated by: Rikki Anglin M.D. on 02/20/2017 at 20:03 Assessment & Plan IN PROCESS GASTROENTEROLOGY PROGRESS NOTE Mrs. Hui is a pleasant 71 years young woman with history of fibromyalgia, chronic pain with residential opioid use, multiple sclerosis, Rosibel fundoplication x2, and tortuous colon anatomy, that presented to [facility] with a four week history of nausea, vomiting, diarrhea, and unintentional weight loss. GI was consulted to assist in evaluation of her symptoms. -- Stool PCR: Negative for screened pathogens -- Flex sig 02/22: Adequate prep; mild internal hemorrhoids; 5-6mm polyp within ascending colon s/p hot snare polypectomy; no signs colitis; Bx obtained of random colon within transverse section; Dx colon polyp, diverticulosis, 'twisty sigmoid' Assessments - Persistent nausea, vomiting, diarrhea - Infectious etiology less likely based on stool PCR; Bx obtained for evaluation of microscopic colitis - Mild segmental wall thickening of sigmoid evidenced on CT 02/20 - Bx obtained 02/22 to r/o microscopic colitis - Colonic polyp of ascending portion s/p hot snare polypectomy - Diverticulosis - Tortuous anatomy of sigmoid - History of Rosibel fundoplication with revision with small hiatal hernia Recs - Continue supportive care - Await histopathology; recommend outpatient GI FU if DC'd prior to results being posted - Repeat full colonoscopy within next few months, with anesthesia - Continue to advance diet as tolerated - Recommend outpatient GI FU in 2-4 weeks to discuss biopsy results, and discuss colonoscopy scheduling and ongoing symptoms, if any Thank you for this consult. Total time: 40 minutes VTE Mechanical Devices: Intermittant Pneumatic CD Resuscitation Status: CPR: Attempt Resuscitation Attending Statement Patient seen and examined. Agree with assessment and plan as described by Dr Reich. Patient has not had recurrence of n/v while in hospital. Negative infectious w/u. There could conceivably be an element of recurrent reflux to blame here, but doubt that as the sole explanation for her n/v/wt loss/ diarrhea. An element of opiate withdrawl could also explain symptoms, but patient denies any significant reduction in opiate dosing as an outpatient. The possibility of severe obstipation was again reviewed with Pema. Patient is aware of the role opiates play in this pathology. She is committed to try to find an alternative to regular opiates but aware this will need to be accomplished under the supervision of her pain specialist. We did discuss the potential role of high CBD/low THC oral cannabid oil in alleviating many of her symptoms as a substitute for opiates. Again, this would need to be managed by her pain specialist. Encouraged 2 tablespoons of ground flax seed fiber mixed with 8 ounces of water or juice twice per day. Will f/u in clinic and at that time decide on the role of repeat upper endoscopy depending on progress. Bonita Reich DO Feb 23, 2017 09:27 Darrius Cantu MD Feb 23, 2017 17:49
[2017-02-23 10:26] VITALS: BP 168/79; PULSE 76; RESP 18; O2SAT 97
--- NOTE | 2017-02-23 10:33 | NUR ---
Social Work: Readiness for d/c Data: Pt is on day 3 of hospitalization. EMR reviewed. Pt discussed in rounds. MD states pt likely to d/c today. [employer] met with pt regarding HH services, HH choice list offered, no preference stated. [employer] referred to rotating calendar, referred pt to [facility] for RN. Access given. F2F ready for [facility]. No further d/c planning anticipated. [employer] will continue to follow if needs arise. Assessment: Pt who is independent at baseline. Plan: Pt will d/c home via POV likely today with [facility], RN. No further d/c planning anticipated. [employer] will continue to follow if needs arise. JULIUS Garcia
[2017-02-23 14:25] VITALS: BP 162/82; PULSE 70; RESP 18; O2SAT 98
--- NOTE | 2017-02-23 14:32 | PCM.DIMED ---
Janes Rodgers DO 02/23/17 1432: Discharge Instructions Date of Service Feb 23, 2017 Dates of Hospitalization Feb 20, 2017 at 15:24 Discharge Diagnosis Discharge Diagnosis 1. Persistent Nausea/Vomiting/Diarrhea 2. Mild Sigmoid Thickening 3. Volume depletion 4. Hypokalemia 5. History of multiple sclerosis 6. Polypharmacy 7.Colonic Polup s/p hot snare polypectomy 8. Diverticulosis 9. H/o Rosibel Fundoplication with Revision Medication Instructions Please continue taking your medications as prescribed. Diet No restrictions Activity No restrictions Call your provider Fever or Chills, Shortness of breath, Bleeding, Chest pain, Vomitting, Excessive diarrhea, Weakness (unilateral) Patient Instructions You are being discharged home with home health services today. Your colonoscopy was reassuring and did not find an acute cause for your nausea and abdominal pain. GI will continue to monitor you, so please follow up with them in 2-4 weeks. Please also follow up with your doctor within 1 week. We recommend you talk to her about evaluating your medication regimen to evaluate for any adverse effects. Follow-up Provider: Suzanne Ortega PAC Follow-up with PCP in: 1 week Provider: Darrius Cantu MD Follow-up in: 2 weeks Saul Monroy MD 02/23/17 1644: Discharge Instructions Attending's Statement The patient was seen and examined independently on 02/23/2017 and case discussed with Dr. Rodgers , I agree with the discharge instructions as outlined in the note above. Janes Rodgers DO Feb 23, 2017 14:32 Saul Monroy MD Feb 23, 2017 16:44
--- NOTE | 2017-02-23 14:55 | NUR ---
HTN Pt. hypertensive this afternoon with BP 160s/80s. Other vitals stable. Pt. reports strong pain. Pain is 3-4/10 and is around her baseline. MD notified. No new orders at this time. Will continue to monitor.
--- NOTE | 2017-02-23 16:10 | NUR ---
Social Work: Discharge Data: Pt is on day 3 of hospitalization. EMR reviewed. MD states pt will d/c today. No further d/c planning anticipated. LEHR CUTTER will continue to follow if needs arise. Assessment: Pt who is independent at baseline. Plan: Pt will d/c home via POV likely today with [facility] RN. No further d/c planning anticipated. LEHR CUTTER will continue to follow if needs arise. JULIUS Garcia
--- NOTE | 2017-02-23 17:39 | PCM.DC.MED ---
Discharge Summary Date of Service Feb 23, 2017 Dates of Hospitalization Date of Hospital Admission Feb 20, 2017 at 15:24 Date of Discharge: Feb 23, 2017 Providers: Admitting Physician: Bud Kearns MD Primary Care Physician: Suzanne Ortega Attending Physician: Bud Kearns MD Diagnosis at Time of Discharge Diagnosis at Time of Discharge 1. Persistent Nausea/Vomiting/Diarrhea 2. Mild Sigmoid Thickening 3. Volume depletion 4. Hypokalemia 5. History of multiple sclerosis 6. Polypharmacy 7.Colonic Polup s/p hot snare polypectomy 8. Diverticulosis 9. H/o Rosibel Fundoplication with Revision Consultations GASTROENTEROLOGY PROGRESS NOTE Mrs. 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 GI was consulted to assist in evaluation of her symptoms. -- Stool PCR: Negative for screened pathogens -- Flex sig 02/22: Adequate prep; mild internal hemorrhoids; 5-6mm polyp within ascending colon s/p hot snare polypectomy; no signs colitis; Bx obtained of random colon within transverse section; Dx colon polyp, diverticulosis, 'twisty sigmoid' Assessments - Persistent nausea, vomiting, diarrhea - Infectious etiology less likely based on stool PCR; Bx obtained for evaluation of microscopic colitis - Mild segmental wall thickening of sigmoid evidenced on CT 02/20 - Bx obtained 02/22 to r/o microscopic colitis - Colonic polyp of ascending portion s/p hot snare polypectomy - Diverticulosis - Tortuous anatomy of sigmoid - History of Rosibel fundoplication with revision with small hiatal hernia Recs - Continue supportive care - Await histopathology; recommend outpatient GI FU if DC'd prior to results being posted - Repeat full colonoscopy within next few months, with anesthesia - Continue to advance diet as tolerated - Recommend outpatient GI FU in 2-4 weeks to discuss biopsy results, and discuss colonoscopy scheduling and ongoing symptoms, if any Procedures XRay, CTs & MRIs CT ABDOMEN AND PELVIS WITH CONTRAST IMPRESSION: 1. Post surgical changes at the gastroesophageal junction suggestive of prior fundoplication with a small hiatal hernia demonstrated. 2. Mild segmental wall thickening of the sigmoid colon compatible with a mild nonspecific infectious or inflammatory colitis. Dictated by: Rikki Anglin M.D. on 02/20/2017 at 20:03 Brief History per HPI This patient saw her PCP for 4 weeks of nausea and vomiting this AM. She also has chronic diarrhea. She has a H/O surgery for hiatal hernia with a second surgery for a related problem and a partial gastrectomy. She has had epigastric abdomen pain and some dyspepsia. No hematemesis. No abdomen distension. No fevers or chills. She also has chronic diarrhea and this is unchanged. She has no blood or mucous per rectum. She has lost 20 pounds over the month and is weaker. Her K is found to be low at 2.8. She is concerned that her nausea relates to her topiramate. Hospital Course Peam Hui 71 year old woman with a PMH of MS, Fibromyalgia, L breast cancer 11 years s/p mastectomy and lymph node dissection, and Hiatal hernia s/p Rosibel fundoplication with subsequent revision with partial gastrectomy in January who presents with a 4 week history of nausea, vomiting, anorexia, and loose bowels. 1. Persistent Nausea/Vomiting/Diarrhea, POA. -Likely associated with microscopic colitis,biopsy pending .hiatal hernia and extensive abdominal surgery history probably is a contributing factor -Gastroenterology Dr Cantu to follow patient outpatient -Dr Cantu has high suspicion that obstipation is the main cause of her symptoms -Patient had Colonoscopy with benign results and recommendations as above 2. Sigmoid Thickening due to suspected microscopic colitis , POA -As demonstrated on CT for abdomen and pelvis. -Patient is afebrile without an elevated white count and her symptoms have been fairly chronic so this is unlikely an infectious process -Further management as above 3. Volume depletion, POA -Resolved with IVF 4. Hypokalemia, POA. - Resolved -Patient was hypokalemic with potassium of 2.6 on admission. Perhaps due to recent prolonged episode of diarrhea -This was replenished with IV potassium and improve to level of 3.6 5. History of multiple sclerosis, POA. -Stable 6. Polypharmacy, POA. -Patient is on an extensive list of medications that could be contributing to her symptoms -We will recommend outpatient follow-up for appropriate titration condition on discharge stable Exam Vital Signs (Last) Date Time Temp Pulse Resp B/P Pulse Ox O2 Delivery O2 Flow Rate FiO2 02/23/17 14:25 36.3 70 18 162/82 98 Room Air Exam General: Well-developed female who appears in no acute distress, resting comfortably. HEENT: Atraumatic, PERRLA, EOMI, oropharynx moist and pink Neck: Soft, nontender CV: RRR with soft systolic murmur noted, peripheral pulses intact and equal Respiratory: CTAB, normal respiratory effort Abdomen: Soft, nondistended, mildly tender in epigastrium, no guarding or rebound, hyperactive bowel sounds noted, no rashes MSK: Muscle strength grossly intact and equal Neuro: Alert and oriented 3, no focal weakness Skin: Warm, dry, intact Psychiatric: Appropriate mood and affect, linear thought process Test 02/20/17 13:16 02/20/17 22:45 02/21/17 06:00 02/23/17 06:35 Hold Blue Top Tube Received (Received) Lipase 36U/L (13-60) Urine Color Straw (YELLOW) Urine Appearance Clear (CLEAR,HAZY) Urine pH 5.5 (5.0-8.0) Urine Specific [place] 1.005 (1.003-1.035) Urine Protein Negativemg/dL (NEG,TRACE) Urine Glucose (UA) Negativemg/dL (NEGATIVE) Urine Ketones Negativemg/dL (NEGATIVE) Urine Occult Blood Negative (NEGATIVE) Urine Nitrite Negative (NEGATIVE) Urine Bilirubin Negative (NEGATIVE) Urine Urobilinogen Normalmg/dL (NORMAL) Urine Leukocyte Esterase Small (NEGATIVE) Urine RBC 0-2/hpf (0-2) Urine WBC 11-50/hpf (0-5) Urine Epithelial Cells Few/hpf (NONE-MOD) Urine Crystals None seen (NONE SEEN) Urine Bacteria Few/hpf (NONE-FEW) Urine Hyaline Casts None/lpf (NONE) Urine Granular Casts None seen (NONE SEEN) Urine Waxy Casts None seen (NONE SEEN) Urine Red Blood Cell Casts None seen (NONE SEEN) Urine White Blood Cell Casts None seen (NONE SEEN) Urine Mucus None seen (None Seen) Urine Trichomonas None seen (NONE SEEN) Urine Yeast None (NONE SEEN) Urinalysis Comment None Urine Culture Reflexed Indicated Magnesium Level 1.8mg/dL (1.6-2.6) Procalcitonin 0.05ng/mL (0.00-0.08) Thyroid Stimulating Hormone (TSH) 2.900uIU/mL (0.450-4.500) Free Thyroxine 1.01ng/dL (0.82-1.77) White Blood Count 7.7th/mm3 (3.8-10.1) Red Blood Count 4.62mil/mm3 (3.90-5.20) Hemoglobin 13.6g/dL (12.0-15.6) Hematocrit 39.0% (35.0-46.0) Mean Corpuscular Volume 84.4fL (81-100) Mean Corpuscular Hemoglobin 29.4pg (27.0-35.0) Mean Corpuscular Hemoglobin Concent 34.9% (32.0-37.0) Red Cell Distribution Width 14.3% (12.3-15.4) Platelet Count 261bil/L (150-400) Neutrophils (%) (Auto) 38.3% (40-74) Lymphocytes (%) (Auto) 35.8% (14-46) Monocytes (%) (Auto) 6.6% (4-12) Eosinophils (%) (Auto) 17.7% (0-5) Basophils (%) (Auto) 0.8% (0-3) Sodium Level 143mEq/L (134-144) Potassium Level 4.2mEq/L (3.5-5.2) Chloride Level 109mEq/L (97-108) Carbon Dioxide Level 22mmol/L (18-29) Blood Urea Nitrogen 2mg/dL (8-27) Creatinine 0.58mg/dL (0.57-1.00) Estimat Glomerular Filtration Rate 147mL/min (>59) Glucose Level 97mg/dL (60-99) Calcium Level 8.5mg/dL (8.5-10.1) Total Bilirubin 0.2mg/dL (0.0-1.2) Aspartate Amino Transf (AST/SGOT) 21U/L (0-50) Alanine Aminotransferase (ALT/SGPT) 13U/L (0-32) Alkaline Phosphatase 54U/L (25-165) Total Protein 4.8g/dL (6.4-8.4) Albumin 2.8g/dL (3.4-5.0) Discharge Medications Discharge Medications Ascorbate Calcium (Vitamin C) 500 Mg Tablet 500 MG PO DAILY (Reported) Baclofen (Baclofen) 10 Mg Tablet 10 MG PO TID (Reported) Cyanocobalamin (Vitamin B-12) (Vitamin B-12) 100 Mcg Tablet 100 MCG PO DAILY ( Reported) Cyclosporine (Restasis) 1 Each Droperette 1 EACH OP BID (Reported) Dalfampridine (Ampyra) 10 Mg Tablet 10 MG PO BID (Reported) Ergocalciferol (Vitamin D2) (Vitamin D2) 2,000 Unit Tablet 50,000 UNIT PO QSu ( Reported) Esomeprazole Magnesium (Nexium) 40 Mg Capsule.dr 40 MG PO BID (Reported) Gabapentin (Gabapentin) 400 Mg Capsule 400 MG PO TID (Reported) Inulin (Fiber Gummies) 2 Gram Tab.chew 2 GM PO DAILY (Reported) Levothyroxine (Levothyroxine) 75 Mcg Tablet 75 MCG PO DAILY (Reported) Metoprolol Succinate ER (Toprol XL) 25 Mg Tablet 25 TABLET PO DAILY (Reported) Multivitamin (Multi Vitamin Daily) 1 Each Tablet 1 EACH PO DAILY (Reported) Paroxetine (Paxil) 20 Mg Tablet 10 MG PO DAILY (Reported) Pilocarpine ([place]) 5 Mg Tablet 5 MG PO DAILY (Reported) Tolterodine Tartrate (Detrol) 2 Mg Tablet 4 MG PO DAILY (Reported) Topiramate (Topiramate) 25 Mg Tablet 25 MG PO BID (Reported) Trazodone (Trazodone) 50 Mg Tablet 50 MG PO HS (Reported) As needed Diclofenac Gel (Voltaren Gel) 100 Gm Tube 1 UNIT TOPICAL DAILY PRN PRN inflammation (Reported) Fluticasone Propionate (Fluticasone Propionate Nasal) 16 Gm [place].susp 1 SPRAY NOSTRIL DAILY PRN PRN For Congestion (Reported) Nystatin/Triamcin (Nystatin-Triamcinolone Cream) 15 Gm Cream..g. 15 GM TP PRN yeast (Reported) oxyCODONE-Acetaminophen 5-325 mg (oxyCODONE-Acetaminophen 5-325 mg) 1 Each Tablet 0.5 TABLET PO Q6H PRN PRN For Pain (Reported) Miscellaneous Medications ([steroid inj]) (Reported) Additional med instructions Please continue taking your medications as prescribed. Followup Plan Disposition: Home with home health services Discharge Diet: No restrictions Discharge Activity: No restrictions Patient Instructions You are being discharged home with home health services today. Your colonoscopy was reassuring and did not find an acute cause for your nausea and abdominal pain. GI will continue to monitor you, so please follow up with them in 2-4 weeks. Please also follow up with your doctor within 1 week. We recommend you talk to her about evaluating your medication regimen to evaluate for any adverse effects. Follow-up Provider: Suzanne Ortega Follow-up with PCP in: 1 week Provider: Darrius Cantu MD Follow-up in: 2 weeks Time spent 35 minutes coordinating discharge and counselling patient Attending Statement The patient was seen and examined independently on 02/23/2017 and case discussed with Dr. Rodgers , I agree with the discharge summary as outlined in the note above. copies to: Suzanne Ortega Hong D DO Feb 23, 2017 17:39 Saul Monroy MD Feb 24, 2017 00:04
[2017-02-23] MEDS ORDERED: Propofol 10,000 mCg/mL 20 mL Inj ONE (18:58)
[2017-02-23] MEDS ORDERED: fentaNYL-PF 50 mCg/mL 2 mL Inj ONE (18:58)
--- NOTE | 2017-02-25 18:51 | NUR ---
Reasons of K+ ordered at 2205 02/20/2017 delayed given Late entry. Reasons of K+ ordered at 2205 02/20/2017 delayed given : 1. Waiting for K recheck. Dr. Rose contacted due to pt already had K rider at evening. MD said "recheck K, give the med if K still low after recheck. 2. waiting for med to be sent. 3:Charge nurse Kaz lopez notified to give the dose because primary RN taking care of the other pt in possible [place].
--- NOTE | 2017-03-06 14:57 | PATH ---
SURGICAL PATHOLOGY Attending Physician:Nithin Wilcox CASE STATUS: Signed Out * Amended * PATIENT NAME: HAROLDO RICHARDSON PID: [id number] : 1945 DATE COLLECTED:02/22/2017 00:00 SPECIMEN: 1: Colon, Biopsy 2: Colon, Biopsy CLINICAL HISTORY: 1). ASCENDING COLON POLYP 2). RANDOM COLON BIOPSIES FINAL DIAGNOSIS: 1. Ascending Colon, Polyp, Biopsy: Tubular adenoma; negative for high-grade dysplasia. 2. Colon, Random Biopsy: Superficial portions of colorectal mucosa x2 with rare small lymphoid aggregates and otherwise no significant histomorphologic abnormality. There is no evidence of lymphocytic colitis. Negative for dysplasia and malignancy. No pathogenic organisms or granulomas identified. ICD10 K63.5 This case was reviewed and interpreted by Dr. Rossy Jenkins. The final diagnosis is unchanged. This amendment is issued in order for the report to cross the interface and be available in the hospital electronic medical record. GROSS DESCRIPTION: The specimen is received in two formalin filled containers labeled with the patient's name. 1). The specimen is sublabeled "ascending colon polyp" and consists of a 0.2 x 0.2 x 0.2 CM portion of tissue which is entirely submitted in cassette 1A. 2). The specimen is sublabeled "random colon" and consists of 2 portions of tissue which aggregate to 0.3 x 0.3 x 0.2 CM. The specimen is entirely submitted in cassette 2A. 02/23/2017 [facility] ICD-9 CODES: CPT CODES: 1: 24039 2: 99259 AMENDMENT(S): Amended: 03/06/2017 by Aneta Ramos Reason:Miscellaneous The final diagnosis is unchanged. This amendment is issued in order for the report to cross the interface and be available in the hospital electronic medical record. Previous Signout Date: 02/27/2017 Electronically Signed Out Becca Echeverria MD [facility] [address], [place] [address] Technical component performed at [facility], [facility] [address], [place], [address]
== END 2017-02-23 18:59 | disposition home health service (06) | DRG 392 ==
LOC: SED 11:46 → MPC 15:24
PROVIDERS: ADMIT Hospitalist; ATTEND Hospitalist
PROC: 0DBK8ZZ Excision of Ascending Colon, Via Natural or Artificial Opening Endoscopic (ICD-10-PCS; principal; 2017-02-22 15:30)
DX: K52.839 Microscopic colitis, unspecified (principal); F11.20 Opioid dependence, uncomplicated; K59.00 Constipation, unspecified; E87.6 Hypokalemia; E86.0 Dehydration; R11.2 Nausea with vomiting, unspecified; G35 Multiple sclerosis; I10 Essential (primary) hypertension; G89.4 Chronic pain syndrome; D12.2 Benign neoplasm of ascending colon

== ENCOUNTER 2017-04-24 12:55 | Day surgery (SDC) | payer MEDICARE, OTHER ==
[~2017-04-24] VITALS: Ht 154.9 cm; Wt 66.0 kg
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
[~2017-04-24 12:55] MED LIST changes: -ATEN25TA PO; -DALF10TA PO; +ERGO2000 PO; -ERGO500050 PO; -FESO4TAB PO; +FLUT16SP NOSTRIL; +GABA-504 PO; -GABA800T2 PO; +Lactated Ringer's 1,000 ML IV ONE; +METO25TA3 PO; +OXYC1TAB24 PO; -PSYL660P17 PO; -[UNRECOGNIZED DRUG - OTHER] PO
[2017-04-24] MEDS ORDERED: Propofol 10,000 mCg/mL 20 mL Inj ONE (12:56)
[2017-04-24 13:23] VITALS: BP 175/87; PULSE 71; RESP 16; O2SAT 96
[2017-04-24] MEDS ORDERED: Lactated Ringer's 1,000 ML IV SCH (13:45)
[2017-04-24] MEDS ORDERED: Ondansetron 2 mg/mL 2 mL Inj IVPUSH PRN (13:45)
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
[2017-04-24 14:49] VITALS: BP 135/66; PULSE 62; RESP 14; O2SAT 99
--- NOTE | 2017-04-24 14:57 | PCM.ANEP1 ---
Post Anesthesia PACU Phase 1 Assessment Vital Signs Vital Signs Date Time Temp Pulse Resp B/P Pulse Ox O2 Delivery O2 Flow Rate FiO2 04/24/17 14:49 62 14 135/66 99 Room Air 04/24/17 13:23 36.4 71 16 175/87 96 Room Air Anesthetic Administered: GA Level of Alertness: Awake, talking HERRERA's with Equal Strength: Yes Pain: No Nausea or Vomiting: No CV Function & Hydration Stable: Yes Airway Device: Oxygen Delivery: Room Air Lungs: Clear to Auscultation PACU Phase 2 Assessment Complications: No Follow up Care: No Patient Instructions Provided: N/A Dony Olmstead MD April 24, 2017 14:56
[2017-04-24 14:59] VITALS: BP 148/68; PULSE 67; RESP 16; O2SAT 100
[2017-04-24 15:07] VITALS: BP 162/78; PULSE 67; RESP 16; O2SAT 99
--- NOTE | 2017-04-24 15:26 | ENDO ---
[address] [address] ENDOSCOPY PROCEDURE PATIENT: HAROLDO RICHARDSON : 1945 MR#: [id number] ADMIT: 04/24/2017 JOB ID: [id number] DATE OF SERVICE: 04/24/2017 PRIMARY PROVIDER: Suzanne Ortega PA-C. PROCEDURE: Esophagogastroduodenoscopy with biopsy and a colonoscopy with random biopsies and hot snare polypectomies. INDICATIONS: A 71-year-old female with symptoms of nausea, intermittent vomiting, reflux, Rosibel fundoplication redo, diarrhea. She additionally has a personal history of colon adenoma. EQUIPMENT: GIF-H180J and a PCF-H180AL. SEDATION: Monitored anesthesia as provided by Dr. Kervin Olmstead. COMPLICATIONS: None identified. BOWEL PREPARATION: Fair, adequate exam. PROCEDURE INFORMATION: After the risks and benefits were explained, written and verbal informed consent was obtained, the patient was brought into the endoscopy suite and placed into the left lateral decubitus position. Sedation was achieved as above. The scope was introduced into the mouth through the bite block and advanced to the second portion of the duodenum. The scope was slowly withdrawn to carefully examine the mucosa for any defects or lesions. Retroflexed views were accomplished in the stomach. The stomach was decompressed. The scope removed from the patient who tolerated the procedure well. The patient was then turned around. A digital rectal examination accomplished. No significant pathology appreciated. The scope was introduced into the rectum and advanced under direct visualization to the level of the cecum, as identified by the appendiceal orifice and ileocecal valve. The very terminal aspect of the terminal ileum was interrogated, appeared normal. The scope was then slowly withdrawn to carefully examine the mucosa for any defects or lesions. Multiple direct views were made through the dentate line for exclusion of pathology. The colon was decompressed, the scope removed from the patient who tolerated the procedure well. FINDINGS: 1. Duodenum. This appeared visually unremarkable from the bulb through to the second portion. Considering the patient's unexplained symptoms of diarrhea, random biopsies were taken for exclusion of sprue. 2. Stomach: No outlet obstruction. No ulcers. No mass lesions. Mild diffuse gastropathy was noted and random gastric biopsies was taken for exclusion of Helicobacter or other pathology. Otherwise, retroflexed views of the LES disclosed a small recurrent hiatal hernia and prior surgical intervention. 3. Esophagus: The squamocolumnar junction correlated with the top of the gastric folds. The GE junction was at approximately 34 cm from the incisors. No acute erosive changes. No strictures. No mass lesions. There was a very subtle recurrent hiatal hernia, nothing terribly significant. The remainder of the esophagus appeared within normal limits. 4. Colon: There were four polyps ranging in size from about 5 mm to 8 or 9 mm each, removed by way of hot snare. These came from all throughout the ascending and transverse region. No evidence of any colitis. Again, the terminal ileum appeared normal at the terminal aspect. Random colon biopsies were taken for exclusion of microscopic colitis once again. ENDOSCOPIC DIAGNOSES: 1. Mild gastropathy. 2. Mild recurrent hiatal hernia. 3. Colon polyps. 4. Hemorrhoids (not mentioned above). RECOMMENDATIONS: 1. Await histopathology. 2. Repeat colonoscopy in three years' time. 3. Continue Nexium. 4. Continue bowel regimen. If there is no evidence of microscopic colitis, I again am concerned about the prospect of recurring overflow diarrhea symptoms. CC: Cas Horner MD.
--- NOTE | 2017-04-26 14:08 | PATH ---
SURGICAL PATHOLOGY Attending Physician:Nithin Wilcox CASE STATUS: Signed Out PATIENT NAME: HAROLDO RICHARDSON PID: [id number] : 1945 DATE COLLECTED:04/24/2017 00:00 SPECIMEN: 1: Duodenum, Biopsy 2: Gastric, Biopsy 3: Colon, Biopsy 4: Colon, Biopsy CLINICAL HISTORY: 1). DUODENUM BIOPSY 2). GASTRIC BIOPSY 3). COLON POLYPS 4). RANDOM COLON BIOPSY FINAL DIAGNOSIS: 1.DUODENUM BIOPSIES: FRAGMENTS OF NORMAL-APPEARING DUODENAL MUCOSA. Normal delicate mucosal villi present. Negative for significant inflammation, dysplasia and malignancy. 2.GASTRIC BIOPSIES: FRAGMENTS OF FUNDIC MUCOSA WITH MILD SUPERFICIAL CHRONIC GASTRITIS. Negative for evidence of Helicobacter. Negative for intestinal metaplasia. Negative for dysplasia and malignancy. 3.COLON POLYPS: TUBULAR ADENOMA INVOLVING MULTIPLE BIOPSY FRAGMENTS. 4.RANDOM COLON BIOPSIES: TWO FRAGMENTS OF NORMAL-APPEARING COLON MUCOSA. Negative for significant architectural distortion. Negative for significant inflammation, dysplasia and malignancy. ICD10 D12.6 GROSS DESCRIPTION: The specimen is received in four formalin filled containers labeled with the patient's name. 1). The specimen is sublabeled "duodenum" and consists of 2 portions of tissue which aggregate to 0.4 x 0.3 x 0.2 CM. The specimen is entirely submitted in cassette 1A. 2). The specimen is sublabeled "gastric" and consists of 2 portions of tissue which aggregate to 0.3 x 0.3 x 0.2 CM. The specimen is entirely submitted in cassette 2A. 3). The specimen is sublabeled "colon polyps" and consists of multiple portions of tissue which aggregate to 0.7 x 0.7 x 0.3 CM. The specimen is entirely submitted in cassette 3A. 4). The specimen is sublabeled "random colon" and consists of 2 portions of tissue which aggregate to 0.3 x 0.3 x 0.2 CM. The specimen is entirely submitted in cassette 4A. 04/26/2017 [facility] MICRO DESCRIPTION: See diagnosis. ICD-9 CODES: CPT CODES: 1: 91893 2: 89738 3: 80811 4: 75301 Electronically Signed Out Darrius Marie MD [facility] Pathology [facility] [address] [place] [id number] Technical component performed at [facility], [address], [place], [address]
== END 2017-04-24 23:59 | disposition home or self-care (01) ==
LOC: END 12:55
PROVIDERS: ATTEND Internal Medicine Gastroenterology
DX: Z12.11 Encounter for screening for malignant neoplasm of colon (principal); Z86.010 Personal history of colon polyps; D12.2 Benign neoplasm of ascending colon; D12.3 Benign neoplasm of transverse colon; K64.9 Unspecified hemorrhoids; K29.50 Unspecified chronic gastritis without bleeding; K31.9 Disease of stomach and duodenum, unspecified; K44.9 Diaphragmatic hernia without obstruction or gangrene; R11.0 Nausea; R19.7 Diarrhea, unspecified; I10 Essential (primary) hypertension; E11.9 Type 2 diabetes mellitus without complications; E78.5 Hyperlipidemia, unspecified; M79.7 Fibromyalgia; G35 Multiple sclerosis; F41.8 Other specified anxiety disorders; D50.9 Iron deficiency anemia, unspecified; R13.10 Dysphagia, unspecified; M48.00 Spinal stenosis, site unspecified; Z79.84 Long term (current) use of oral hypoglycemic drugs; Z85.3 Personal history of malignant neoplasm of breast; Z90.710 Acquired absence of both cervix and uterus
CPT/HCPCS: 43239; 45385; 88305; J7120